=== PATIENT | female | born 1940 | race Caucasian/White ===

== ENCOUNTER 2021-11-28 16:47 | Emergency (ER) | payer MEDICARE ==
[~2021-11-28 16:47] MED LIST: NEURONTIN600 MG PO
[2021-11-28 20:43] LABS: HEMOGLOBIN 12.2 gm/dl (12.3-15.3); RED BLOOD COUNT 4.01 M/UL (4.00-5.10); WHITE BLOOD COUNT 5.4 K/UL (4.5-11.0)
[2021-11-28 21:10] LABS: BUN/CREATININE RATIO 26 (0-10)
[2021-11-28] MEDS ORDERED: FLAGYL375 MG PO (22:59)
[2021-11-28] MEDS ORDERED: CIPRO500 MG PO (22:59)
[2021-11-28] MEDS ORDERED: COLACE100 MG PO (23:00)
== END 2021-11-28 23:59 | disposition home or self-care (01) ==
LOC: ER1 16:47
PROVIDERS: Physician Assistant
DX: K59.00 Constipation, unspecified (principal); K51.30 Ulcerative (chronic) rectosigmoiditis without complications; Z90.710 Acquired absence of both cervix and uterus; Z88.0 Allergy status to penicillin
CPT/HCPCS: 80053; 81001; 83605; 83690; 85025; 87086; 96374; 99284; J1335; Q9967

== ENCOUNTER 2022-02-07 10:58 | Emergency (ER) | payer MEDICARE ==
[~2022-02-07 10:58] MED LIST changes: +CIPRO500 MG PO; +COLACE100 MG PO; +ELIQUIS 5 MG TAB5 MG PO; +FLAGYL375 MG PO
[2022-02-07 11:53] LABS: HEMOGLOBIN 12.6 gm/dl (12.3-15.3); RED BLOOD COUNT 4.17 M/UL (4.00-5.10); WHITE BLOOD COUNT 6.2 K/UL (4.5-11.0)
[2022-02-07 13:42] LABS: BUN/CREATININE RATIO 19 (0-10)
[2022-02-07] MEDS ORDERED: BENZONATATE200 MG PO (16:57)
[2022-02-07] MEDS ORDERED: ZITHROMAX250 MG PO (16:57)
== END 2022-02-07 17:30 | disposition home or self-care (01) ==
LOC: ER1 10:58
DX: R05.9 Cough, unspecified (principal); R10.30 Lower abdominal pain, unspecified; J45.909 Unspecified asthma, uncomplicated; Z88.2 Allergy status to sulfonamides; Z90.710 Acquired absence of both cervix and uterus; Z20.822 Contact with and (suspected) exposure to COVID-19
CPT/HCPCS: 0240U; 71045; 80053; 81001; 82550; 82553; 84484; 85025; 93005; 99284; Q9967

== ENCOUNTER → 2022-03-09 | Outpatient (CLI) | payer MEDICARE ==
[~2022-03-09] MED LIST changes: +BENZONATATE200 MG PO; +ZITHROMAX250 MG PO
== END ==
LOC: HEART 5 15:00
DX: I48.91 Unspecified atrial fibrillation (principal); Z86.79 Personal history of other diseases of the circulatory system; I49.3 Ventricular premature depolarization; I07.1 Rheumatic tricuspid insufficiency
CPT/HCPCS: 93306